=== PATIENT | female | born 1975 | race Caucasian/White ===

== ENCOUNTER 2022-06-12 15:32 | Inpatient (IN) | payer OTHER ==
[~2022-06-12] VITALS: Ht 167.6 cm; Wt 104.5 kg
[2022-06-12 15:55] VITALS: BP 158/95; PULSE 98; TEMP 98.7
[2022-06-12] MEDS ORDERED: PRILOSEC 20MG20 MG PO (16:23)
[2022-06-12] MEDS ORDERED: PROTONIX 40MG T40 MG PO (16:24)
[2022-06-12] MEDS ORDERED: ZOFRAN 4MG T4 MG/TAB PO (16:24)
--- NOTE | 2022-06-12 17:15 | NUR ---
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
--- NOTE | 2022-06-12 17:38 | NUR ---
PATIENT DECLINED ANY PAIN MEDICATION AT THIS TIME. WILL CALL IF NEEDED.
[2022-06-12 19:11] VITALS: BP 140/80; PULSE 60; TEMP 98.4
[2022-06-12 19:28] LABS: BASO # 0.1 K/mm3 (0.0-0.2); BASO % 0.8 % (0.0-2.0); EOS % 0.7 % (0.0-4.0); GRAN # 3.4 K/mm3 (1.4-6.5); GRAN % 57.1 % (42.2-75.2); HEMATOCRIT 37.5 % (37.0-47.0); HEMOGLOBIN 13.3 g/dl (12.5-16.0); LYMPH % 33.1 % (20.0-51.0); MEAN CELL VOLUME 84 fl (80.0-100.0); MEAN CORPUSCULAR HEMOGLOBIN 30 pg (27-31); MEAN CORPUSCULAR HGB CONC 36 g/dl (33.0-37.0); MEAN PLATELET VOLUME 9.5 fl (7.4-10.4); MONO # 0.5 K/mm3 (0.1-0.6); MONO % 8.3 % (1.7-9.3); PLATELET COUNT 288 K/mm3 (130-400); RED BLOOD COUNT 4.46 M/mm3 (4.10-5.30); REDCELL DISTRIBUTION WIDTH-CV 11.9 % (11.5-14.5)
[2022-06-12 19:45] LABS: INR 1.2 (0.8-3.0); PROTHROMBIN TIME 13.9 SECONDS (9.7-12.8)
[2022-06-12 19:47] LABS: ERYTHROCYTE SEDIMENTATION RATE 1 mm/hr (0-20)
[2022-06-12 19:50] LABS: ALBUMIN 3.9 gm/dL (3.5-5.0); BILIRUBIN,TOTAL 0.6 mg/dL (0.2-1.2); CALCIUM 8.6 mg/dL (8.4-10.2); CREATININE, serum 0.85 mg/dL (0.57-1.11); MAGNESIUM 2.2 mg/dL (1.6-2.6); POTASSIUM 3.2 mmol/L (3.5-4.5); TOTAL PROTEIN 6.9 gm/dL (6.2-8.1)
[2022-06-13] VITALS (11 sets, daily range): BP systolic 92–125; BP diastolic 50–76; PULSE 51–65; TEMP 97.4–98.8
[2022-06-13 02:38] LABS: CLOSTRIDIUM DIFF A/B NEG
--- NOTE | 2022-06-13 05:29 | NUR ---
Patient had uneventful night, pt stated she had abdominal discomfort but did not want pain medication, warm blanket was given to help with discomfort. pt also finished first bowel prep. otherwise resting in a low bed, fall socks on.
[2022-06-13 06:56] LABS: BASO % 0.8 % (0.0-2.0); EOS # 0.1 K/mm3 (0.0-0.7); EOS % 1.2 % (0.0-4.0); GRAN # 2.7 K/mm3 (1.4-6.5); HEMATOCRIT 36.9 % (37.0-47.0); HEMOGLOBIN 12.9 g/dl (12.5-16.0); LYMPH # 1.7 K/mm3 (1.2-3.4); LYMPH % 34.4 % (20.0-51.0); MEAN CELL VOLUME 87 fl (80.0-100.0); MEAN CORPUSCULAR HEMOGLOBIN 30 pg (27-31); MEAN CORPUSCULAR HGB CONC 35 g/dl (33.0-37.0); MEAN PLATELET VOLUME 10.4 fl (7.4-10.4); MONO # 0.5 K/mm3 (0.1-0.6); MONO % 10.4 % (1.7-9.3); PLATELET COUNT 264 K/mm3 (130-400); RED BLOOD COUNT 4.26 M/mm3 (4.10-5.30); REDCELL DISTRIBUTION WIDTH-CV 12.2 % (11.5-14.5)
[2022-06-13 07:24] LABS: CALCIUM 8.3 mg/dL (8.4-10.2); CREATININE, serum 0.82 mg/dL (0.57-1.11); MAGNESIUM 2.1 mg/dL (1.6-2.6)
[2022-06-13 07:49] LABS: POTASSIUM 3.6 mmol/L (3.5-4.5)
--- NOTE | 2022-06-13 08:12 | NUR ---
Pt assessment complete. Pt is sitting up in bed upon entry, started second half of bowel prep. Reports some pain to epigastric region 6/10, some nausea present. Reports loose stools with little substance. POC discussed with patient who verbalizes understanding. No needs at this time. Call light within reach.
--- NOTE | 2022-06-13 11:09 | NUR ---
NEREYDA met with the patient and her , Vlad (ph#[phone]), to discuss discharge plan. The patient lives in [place] with her and two children. She reports independence with ADLs and does not have any DME. The patient's PCP is Dr. Herman" at [facility] and she receives her medications from [facility] in [place]. The patient does not have a DPOA-HC. The patient plans to return home with her family upon discharge. No additional needs at this time. *Discharge plan: home with family*
--- NOTE | 2022-06-13 19:12 | NUR ---
POC discussed with patient and . Will let patient eat and drink and see how she does with this and will reevaluate plan tomorrow per Dr. Lawrence. IVF infusing per orders. No needs at this time. Call light within reach.
[2022-06-14 03:36] VITALS: BP 93/62; PULSE 58; TEMP 97.9
[2022-06-14 06:57] LABS: BASO % 0.7 % (0.0-2.0); EOS # 0.1 K/mm3 (0.0-0.7); GRAN % 68.2 % (42.2-75.2); HEMOGLOBIN 12.6 g/dl (12.5-16.0); LYMPH # 1.3 K/mm3 (1.2-3.4); LYMPH % 22.6 % (20.0-51.0); MEAN CELL VOLUME 85 fl (80.0-100.0); MEAN CORPUSCULAR HEMOGLOBIN 31 pg (27-31); MEAN CORPUSCULAR HGB CONC 36 g/dl (33.0-37.0); MEAN PLATELET VOLUME 10.1 fl (7.4-10.4); MONO # 0.4 K/mm3 (0.1-0.6); MONO % 7.3 % (1.7-9.3); PLATELET COUNT 243 K/mm3 (130-400); RED BLOOD COUNT 4.09 M/mm3 (4.10-5.30); REDCELL DISTRIBUTION WIDTH-CV 12.1 % (11.5-14.5)
[2022-06-14 07:02] LABS: HEMATOCRIT 34.9 % (37.0-47.0)
[2022-06-14 07:06] LABS: CALCIUM 8.2 mg/dL (8.4-10.2); CREATININE, serum 0.74 mg/dL (0.57-1.11); POTASSIUM 3.5 mmol/L (3.5-4.5)
[2022-06-14 07:44] VITALS: BP 122/73; PULSE 62; TEMP 97.5
--- NOTE | 2022-06-14 09:03 | NUR ---
SHIT ASSESSMENT PERFORMED. Pt AWAKE AND TALKING TO GUEST, REPORTS NO CHANGE IN PAIN. VS STABLE. BED IN LOWEST POSITION CALL LIGHT WITHIN REACH.
--- NOTE | 2022-06-14 09:07 | NUR ---
Initial visit; Patient thanked Typesetting Machine Operator/Tender for looking in on her and offering God's blessings and keeping her in Typesetting Machine Operator/Tender's prayers for a good diagnosis and healing.
--- NOTE | 2022-06-14 10:30 | NUR ---
DISCHARGE INSTRUCTIONS REVIEWED. IV ISCONTINUED. PT ESCORTED TO VEHICLE BY PCT ELIS.
[2022-06-14] MEDS ORDERED: LEVSIN0.125 M1 PO (10:44)
[2022-06-14 11:04] LABS: CHOLESTEROL RISK RATIO 4.5
== END 2022-06-14 11:00 | disposition home or self-care (01) | DRG 392 ==
LOC: MEDICAL 15:32 → EDBD 15:32 → MEDICAL 21:00
PROVIDERS: Internal Medicine Gastroenterology; Student in an Organized Health Care Education/Training Program; ADMIT Internal Medicine
PROC: 0DB78ZX Excision of Stomach, Pylorus, Via Natural or Artificial Opening Endoscopic, Diagnostic (ICD-10-PCS; principal; 2022-06-13 14:45)
PROC: 0DBE8ZX Excision of Large Intestine, Via Natural or Artificial Opening Endoscopic, Diagnostic (ICD-10-PCS; 2022-06-13 14:45)
DX: R10.9 Unspecified abdominal pain (principal); I48.0 Paroxysmal atrial fibrillation; G47.33 Obstructive sleep apnea (adult) (pediatric); K21.9 Gastro-esophageal reflux disease without esophagitis; R00.0 Tachycardia, unspecified; R11.2 Nausea with vomiting, unspecified; R63.4 Abnormal weight loss; Z88.8 Allergy status to other drugs, medicaments and biological substances
CPT/HCPCS: J2405; J2704; J7030; J7120